=== PATIENT | male | born 1995 | race Caucasian/White ===

== ENCOUNTER 2023-10-18 17:14 | Emergency (ER) | payer MEDICAID ==
[~2023-10-18] VITALS: Ht 172.7 cm; Wt 95.3 kg
[2023-10-18 17:35] VITALS: BP 136/69; TEMP 98.6; O2SAT 99
[2023-10-18] MEDS ORDERED: POLY10DR3 LEFTEYE (18:10)
== END 2023-10-18 18:18 | disposition home or self-care (01) ==
LOC: ER 17:25
DX: H10.9 Unspecified conjunctivitis (principal)